=== PATIENT | male | born 1945 | race Two or more races ===

== ENCOUNTER 2024-03-10 14:37 | Emergency (ER) | payer MEDICARE, MEDICAID, SELFPAY ==
[2024-03-10 14:40] VITALS: BMI 29.6
[2024-03-10 15:09] VITALS: BP 119/75; PULSE 84; RESP 18; TEMP 36.9; O2SAT 93
--- NOTE | 2024-03-10 15:19 | XR_ITS ---
Examination: PA lateral chest 2 views TECHNIQUE: Upright PA lateral chest 2 views Exam date and time: March 10, 2024 1530 hours Comparison April 03, 2023 INDICATIONS: Coughing shortness of breath beginning 2 weeks ago. FINDINGS: Opacity in the left lower lung zone obscuring detail left cardiac contour Similar opacity in the right middle lobe Normal heart size Intact osseous structures IMPRESSION: Recommend lateral chest view follow-up to exclude pneumonia in the lingular segment left upper lobe and right middle lobe
--- NOTE | 2024-03-10 15:19 | EKG_ITS ---
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
--- NOTE | 2024-03-10 15:19 | PD.EDADULT ---
ED General RME/HPI General Chief complaint: General Adult/Misc Complain Stated complaint: SENT FOR PNEUMONIA, WAS AT [facility] 03/06 - 03/08/24 Time Seen by Provider: 03/10/24 15:18 Arrival date/time: 03/10/24 14:37 CC: Cough shortness of breath HPI ongoing for the past 4 to 5 days, was seen by recent facility and discharged. The patient was referred by PCP for pneumonia. Patient states he has a wet nonproductive cough denies ever he is smoking. Oxygen saturations per the family this morning were at 77% patient has mild expiratory wheezing with wet nonproductive cough. Patient denies chest pain. Related Data Home Medications ?Medication ?Instructions ?Recorded ?Confirmed donepezil 5 mg tablet 5 mg PO HS 09/12/21 04/03/23 gabapentin 300 mg capsule 1 cap PO TID PRN peripheral 09/12/21 04/03/23 neuropathy hydrocodone 10 mg-acetaminophen 1 tab PO Q12H PRN Severe Pain 09/12/21 04/03/23 325 mg tablet (Scale Score 7-10) metoprolol succinate 50 mg 25 mg PO QDAY 09/12/21 04/03/23 tablet,extended release 24 hr alprazolam 1 mg tablet (Xanax) 1 mg PO HS 04/03/23 04/03/23 lacosamide 50 mg tablet 50 mg PO BID 04/03/23 04/03/23 linaclotide 145 mcg capsule 145 mcg PO QAM 04/03/23 04/03/23 (Linzess) losartan 100 mg tablet 100 mg PO QDAY 04/03/23 04/03/23 venlafaxine 100 mg tablet 100 mg PO QDAY 04/03/23 04/03/23 Previous Rx's ?Medication ?Instructions ?Recorded doxycycline hyclate 100 mg capsule 100 mg PO BID #14 caps 03/10/24 prednisone 20 mg tablet See Taper PO BID 3 days #6 tabs 03/10/24 Allergies Allergy/AdvReac Type Severity Reaction Status Date / Time No Known Allergies Allergy Verified 04/03/23 10:32 Review of Systems Review of Systems Narrative Review of Systems: GEN: No fever, no chills, no weight loss EYES: No discharge, no visual changes, no pain HEENT: No ear pain, no congestion, no sore throat PULM: No shortness of breath, + cough, no congestion CV: No chest pain, no dyspnea on exertion, no palpitations GI: No nausea, no vomiting, no diarrhea, no pain, no constipation : No frequency, no urgency, no dysuria MUSC/SKEL: No joint pain, no back pain SKIN: No rash PSYCH: No hallucinations, no depression HEME/LYMPH: No easy bleeding or bruising tendencies NEURO: No weakness, no headache Past Medical History Past Medical History NEUROLOGIC: Positive Peripheral Neuropathy (Bilateral feet); Negative Neurological Disorders, Cerebrovascular Accident, Transient Ischemic Attacks (TIA), Dementia, Alzheimer's Disease, Parkinson's Disease, Brain Tumor, Meningitis, Seizures, Epilepsy, Multiple Sclerosis, Cerebral Palsy, Amyotrophic Lateral Sclerosis (ALS/Suzette Gehrig's), Guillain-[place] Syndrome, Spina Bifida, Paralysis, Atris's Palsy, Subdural Hematoma, Migraine, Head Trauma, Spinal Cord Injury or Traumatic Brain Injury CARDIAC: Positive Cardiac Disorders (Cardiac cath 09/2020), Cardiac Arrhythmia, Atrial Fibrillation and Hypertension; Negative Myocardial Infarction, Angina, Heart Murmur, Coronary Artery Disease, Atherosclerotic Heart Disease, Peripheral Vascular Disease, Hypercholesterolemia, Aneurysm, Congestive Heart Failure, Congenital Heart Disease, Valvular Heart Disease, Rheumatic Fever, Cardiomyopathy, Edema, Pericarditis, Cellulitis, Deep Vein Thrombosis, Hypotension or Varicose Veins RESPIRATORY: Negative Chronic Obstructive Pulmonary Disease (COPD), Asthma, Bronchitis, Emphysema, Pneumonia, Pulmonary Fibrosis, Cystic Fibrosis, Tuberculosis, Pulmonary Embolism, Pulmonary Edema or Sleep Apnea GASTROINTESTINAL: Positive Pancreatitis (2012), Gall Bladder Disease and Obesity; Negative Gastrointestinal Disorders, Hepatitis, Cirrhosis, Celiac Disease, Gastrointestinal Bleed, Esophageal Varices, Crane's Esophagus, Colitis, Ulcerative Colitis, Diverticulitis, Diverticulosis, Ulcer, Colorectal Cancer, Irritable Bowel, Crohn's Disease, Obstructive Bowel, Hiatal Hernia, Hemorrhoids or Gastroesophageal Reflux Disease GENITOURINARY: Negative Genitourinary Disorders, Renal Disease, Kidney Stones, Polycystic Kidney Disease, Neurogenic Bladder, Inguinal Hernia, Dialysis, Prostate Cancer or Benign Prostatic Hyperplasia REPRODUCTIVE: Negative Genital Herpes, Gonorrhea, Syphilis or Testicular Cancer MUSCULOSKELETAL: Positive Musculoskeletal Disorders (Cervical spine stenosis), Arthritis and Fractures (Left ankle); Negative Muscular Dystrophy, Myasthenia Gravis, Marfan's Syndrome, Bone Cancer, Rheumatoid Arthritis, Osteoporosis, Degenerative Disk Disease, Gout, Scoliosis, Carpal Tunnel Syndrome, Fibromyalgia, Degenerative Joint Disease, Osteomyelitis or Poliovirus ENT: Negative Cataracts, Glaucoma, Blind, Retinal Detachment, Macular Degeneration, Ear Infection, Deafness, Head Trauma or Eye Prosthesis ENDOCRINE: Negative Endocrine Disorders, Diabetes Mellitus Type 1, Diabetes Mellitus Type 2, Hypoglycemia, Lamar's Syndrome, Berrien's Disease, Hyperthyroidism, Hypothyroidism, Parathyroid Disease, Pituitary Disease, Systemic Lupus Erythematosus, Syndrome of Inappropriate Antidiuretic Hormone (SIADH), Adrenal Disease or Graves' Disease HEMATOLOGIC: Negative Blood Disorders, Anemia, Leukemia, Hemophilia, Thalassemia, Sickle Cell Disease or Clotting Problems PSYCHO/SOCIAL: Positive Depression and Anxiety; Negative Psychiatric Problems, Schizophrenia, Recreational Drug Use, Bipolar Disorder, Behavior Problems, Self-Mutilation, Attention Deficit Disorder, Attention Deficit Hyperactivity Disorder, Post Traumatic Stress Disorder or Eating Disorder OTHER HISTORY: Negative Hospitalization, Autoimmune Disease, Down Syndrome, Autism, Developmental Delay, Shingles, Falls, Blood Transfusions, Blood Transfusion Reaction, Anesthesia Reactions, Organ Transplant, Chemotherapy, Radiation Therapy, Hyperbaric Therapy, MRSA, VRSA, Vancomycin-Resistant Enterococci, Human Immunodeficiency Virus (HIV), Chicken Pox, Measles, Mumps, Rubella (Tajik Measles), Pertussis, Clostridium Difficile, Cancer, Colorectal Cancer, Lung Cancer, Prostate Cancer or Testicular Cancer Family History FAMILY HISTORY: Negative Family Psychiatric Problems, Family Respiratory Disorders, Family Cardiac Disorders, Family Gastrointestinal Problems, Family Cancer, Family Surgery or Family Anesthesia Reaction Surgical History SURGICAL: Negative Cardiac Surgery, Open Heart Surgery, Coronary Artery Bypass Graft, Valve Replacement, Vascular Surgery, Coronary Stent, Cardiac Catheterization, Pacemaker, Angiogram, Auto Implanted Cardiovert Defib, Carotid Endarterectomy, Endocrine Surgery, Thyroidectomy, Ear Surgery, Tympanostomy Tube, Eye Surgery, Nose Surgery, Oral Surgery, Tonsillectomy, Adenoidectomy, Cochlear Implant, Corneal Transplant, Throat Surgery, Abdominal Surgery, Tracheostomy, Gastric Bypass Surgery, Gastrostomy, Bowel Surgery, Nephrectomy, Transurethral Resection, Joint Replacement, Amputation, Open Reduction Internal Fixation, Arthroscopy, Neurologic Surgery, Brain Shunt, Vasectomy or Organ Transplant Social History SMOKING STATUS: Never smoker SUBSTANCE USE: does not use ED Exam Narrative Physical exam: [General: Not in any acute distress Head normocephalic HEENT: Within acceptable limits Neck is supple nontender Chest equal chest rise nontender to palpation Respiratory: Right middle to lower lobe and expiratory crackles, audible expiratory wheezing. CV: Rate rhythm is regular no murmurs rubs or clicks Abdomen is soft nontender no masses positive bowel sounds all 4 quadrants Back: No CVA tenderness no spinous process tenderness from cervical spine thoracic and lumbar spine Skin: Intact no petechiae rash induration ulceration or crepitus Extremities: Moving all extremity against resistance cap refill less than 2 seconds neurosensory intact Neuro: Awake alert oriented x3 Glascow coma 15 no focal deficits] Course Quality Measures none Orders Category Date Time Status Bedside COVID-19 Antigen Test NOW Care 03/10/24 15:19 Active Bedside Influenza A&B Antigen Test NOW Care 03/10/24 15:19 Completed EKG (ED ONLY) *Do not use* NOW Care 03/10/24 15:19 Completed EKG (ED Only) Stat Exams 03/10/24 15:19 Draft XR chest 1V Stat Exams 03/10/24 15:19 Completed XR chest 1V Stat Exams 03/10/24 16:44 Completed B-Type Natriuretic Peptide Stat Lab 03/10/24 15:40 Completed CBC Stat Lab 03/10/24 15:40 Completed Comprehensive Metabolic Panel Stat Lab 03/10/24 15:40 Completed Drug Screen,Urine Stat Lab 03/10/24 17:13 Completed LDH (Lactate Dehydrogenase) Stat Lab 03/10/24 15:40 Completed Magnesium Stat Lab 03/10/24 15:40 Completed Partial Thromboplastin Time Stat Lab 03/10/24 15:40 Completed Prothrombin Time with INR Stat Lab 03/10/24 15:40 Completed Troponin I Stat Lab 03/10/24 15:40 Completed Urinalysis Stat Lab 03/10/24 17:13 Completed 1,000 mg IM w/Lido* 1% Med 03/10/24 18:34 Ordered cefTRIAXone [Rocephin] 1,000 mg Lidocaine 1% 20 ml [Xylocaine 1% 20 ML] 2.1 ml IM X1 Albuterol/Ipratr Rt Rhoda [Duoneb Rt Rhoda] Med 03/10/24 15:22 Discontinued 3 ml INH X1 ONE Vital Signs Vital signs: Vital Signs Temperature 98.5 F 03/10/24 15:09 Pulse Rate 84 03/10/24 15:09 Respiratory Rate 18 03/10/24 15:09 Blood Pressure 119/75 03/10/24 15:09 Pulse Oximetry (%) 93 L 03/10/24 15:09 Oxygen Delivery Method Room Air 03/10/24 15:09 [facility] Patient data External records reviewed:: [facility] previous records Clinical information provided by:: patient Social determinants that could affect healthcare access:: none Patient has the following chronic illnesses:: Hypertension How is presenting disease/condition affected by chronic disease/condition?: uneffected by Evaluation data The following diagnostics were reviewed and interpreted by me:: lab results, radiology exam(s) and EKG tracing(s) Lab and/or radiology exams considered but not ordered:: CBC shows no acute leukocytosis anemia thrombocytopenia CMP shows mildly elevated glucose level no other electrolyte imbalances renal impairment transaminitis or T. bili elevation. Coags within acceptable limits 2 view chest shows no pneumonia. Troponin is negative BNP is negative Interpretation Summary: Although the patient has no leukocytosis he does have a wet nonproductive cough, borderline oxygen saturations at home but are reasonable except saturations for us here in the ER. This time the patient with discharge after injection of Rocephin to be given doxycycline and steroids and if there is a worsening of symptoms he is to return the emergency room immediately for further evaluation otherwise return in 48 hours for recheck. Medications Medications considered but not ordered:: None Medication administrations:: Medication Administration History Discontinued Medications Albuterol/Ipratropium (Albuterol/Ipratropium (Duoneb) Rt Rhoda 3 Ml Nebu) 3 ml INH X1 ONE Stop: 03/10/24 15:23 Last Admin: 03/10/24 16:09 Dose: 3 ml Documented By: KENISHA None Consultations Consultation(s) initiated? (list below): No Diagnosis Differential Diagnosis ED Complaint MDM: Pneumonia CHF COPD Most likely diagnosis given after review of the tests above:: Pneumonia Admission Indicated Admission indicated?: not indicated Explain why admission is indicated or not indicated:: Stable for outpatient follow-up Admission Request Was there a request for admission?: No Disposition Plan Disposition Plan: Discharge Discharge Attestation Discharge Attestation: The patient and all family members were given an opportunity to ask questions and understood the discharge instructions. Discharge instructions specifically effects, indications for sooner follow up or return to the emergency department, and the expected course of current diagnosis. Patient condition: Stable Medical Decision Making Differential Diagnosis Differential Diagnosis: Pneumonia CHF COPD Lab Data 03/10/24 15:40 03/10/24 15:40 Labs: Lab Results 03/10/24 03/10/24 Range/Units 15:40 17:13 WBC 7.8 (3.8-10.6) Thou/mm3 RBC 5.28 (4.50-5.90) Miln/mm3 Hgb 14.4 (13.5-16.0) g/dL Hct 44.5 (41.0-53.0) % MCV 84 (80-100) fL MCH 27.3 (25.0-35.0) pg MCHC 32.4 (31.0-37.0) g/dl RDW Std Deviation 43.7 (35.1-43.9) fL Plt Count 121 L (140-440) Thou/mm3 Neut % (Auto) 74 (37-80) % Lymph % (Auto) 13 (10-50) % [place] % (Auto) 10 (0-12) % Eos % (Auto) 2 (0-10) % Baso % (Auto) 1 (0-2.5) % Neut # (Auto) 5.8 (1.8-7.7) Thou/mm3 Lymph # (Auto) 1.0 (1.0-4.8) Thou/mm3 [place] # (Auto) 0.8 (0.0-0.8) Thou/mm3 Eos # (Auto) 0.2 (0.0-0.5) Thou/mm3 Baso # (Auto) 0.0 (0.0-0.2) Thou/mm3 Immature Gran # (Auto) 0.03 H (0.00-0.00) Thou/mm3 Absolute Nucleated RBC 0.00 (0.00-0.00) Thou/mm3 Immature Gran % 0 (0-0) % Nucleated RBC % 0 (0) /100 WBC PT 13.2 H (9.0-12.2) Seconds INR 1.2 (0.9-1.3) APTT 27.8 (22.0-36.0) Seconds Sodium 137 (136-145) mMol/L Potassium 4.0 (3.4-5.1) mMol/L Chloride 101 (98-107) mMol/L Carbon Dioxide 28.5 (20.0-31.0) mMol/L Anion Gap 8 (7-16) BUN 15 (9-23) mg/dL Creatinine 1.1 (0.6-1.3) mg/dL Estim Creat Clear Calc 60.8 L (>60) mL/min eGFR > 60 (60 - ) See Note BUN/Creatinine Ratio 14 (12-20) Ratio Glucose 126 H (74-106) mg/dL Calculated Osmolality 276 (275-295) Calcium 9.3 (8.3-10.6) mg/dL Corrected Calcium 9.3 (8.5-10.1) mg/dL Magnesium 1.6 (1.6-2.6) mg/dL Total Bilirubin 0.5 (0.3-1.2) mg/dL AST 32 (0-34) U/L ALT 17 (10-49) U/L Alkaline Phosphatase 88 (46-116) U/L Lactate Dehydrogenase 238 (120-246) U/L Troponin I < 0.020 (0.0-0.045) ng/mL B-Natriuretic Peptide 55 (0-100) pg/mL Total Protein 7.8 (5.7-8.2) gm/dL Albumin 4.7 (3.4-4.8) gm/dL Globulin 3.1 (2.3-3.5) gm/dL Albumin/Globulin Ratio 1.5 (1.2-2.2) Ur Collection Type Clean Catch Urine Color Lt-Yellow (Lt Yel-Yel) Urine Clarity Clear (Clear/Hazy) Urine pH 6.0 (5.0-7.0) Ur Specific [place] 1.009 (1.001-1.035) Urine Protein Negative (Neg - Trace) Urine Glucose (UA) Negative (Negative) Urine Ketones Negative (Negative) Urine Blood Negative (Negative) Urine Nitrite Negative (Negative) Urine Bilirubin Negative (Negative) Urine Urobilinogen (Auto) Negative (0.0-1.0) mg/dL Ur Leukocyte Esterase Negative (Negative) Urine RBC < 1 (0-3) /hpf Urine WBC < 1 (0-5) /hpf Ur Squamous Epith Cells 0 (0-5) /hpf Urine Bacteria None (None) Urine Opiates Screen Negative (Negative) Urine Fentanyl Screen Negative (Negative) Ur Barbiturates Screen Negative (Negative) U Amphetamin/Meth Scrn Negative (Negative) U Benzodiazepines Scrn Positive A (Negative) U Cocaine Metab Screen Negative (Negative) U Marijuana (THC) Screen Negative (Negative) Discharge Plan Plan Patient Disposition: HOME (Self Care) Patient condition on transfer: Stable Prescriptions/Referrals Prescriptions/Med Rec: New doxycycline hyclate 100 mg capsule 100 mg PO BID Qty: 14 0RF prednisone 20 mg tablet See Taper PO BID 3 Days Qty: 6 0RF Taper: Prednisone Taper 20 mg DAILY for 2 Days and 0 Hour 10 mg DAILY for 2 Days and 0 Hour 5 mg DAILY for 7 Days and 0 Hour No Action donepezil 5 mg tablet 5 mg PO HS Patient Comments: TAKE 1 TABLET BY ORAL ROUTE EVERY DAY IN THE EVENING FOR SHORT TERM MEMORY LOSS. hydrocodone-acetaminophen 10-325 mg tablet 1 tab PO Q12H PRN (Reason: Severe Pain (Scale Score 7-10)) Patient Comments: TAKE 1 TABLET BY MOUTH EVERY 8 HOURS NEEDED FOR SEVERE PAIN metoprolol succinate 50 mg Tablet Extended Release 24 Hr 25 mg PO QDAY gabapentin 300 mg capsule 1 cap PO TID PRN (Reason: peripheral neuropathy) Patient Comments: TAKE 1 CAPSULE BY ORAL ROUTE 3 TIMES EVERY DAY NEEDED FOR NEUROPATHY. alprazolam [Xanax] 1 mg Tablet 1 mg PO HS venlafaxine 100 mg Tablet 100 mg PO QDAY Rx Instructions: Every evening Linzess 145 mcg Capsule 145 mcg PO QAM losartan 100 mg Tablet 100 mg PO QDAY lacosamide 50 mg Tablet 50 mg PO BID Referrals: Yola Vance [Primary Care Provider] - In 1 week Problem List Clinical Impression: Pneumonia Patient/Caregiver Discharge Instructions Education Materials: ED Pneumonia (Adult) Additional Instructions: Take the medications as prescribed return in 48 hours for recheck unless there is a worsening of symptoms prior to that in spite of the medications then return immediately for reevaluation. 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
[2024-03-10 15:55] LABS: Basophils % (Auto) 1 % (0-2.5); Eosinophils # (Auto) 0.2 Thou/mm3 (0.0-0.5); Eosinophils % (Auto) 2 % (0-10); Hematocrit 44.5 % (41.0-53.0); Hemoglobin 14.4 g/dL (13.5-16.0); Immature Granulocytes % (Auto) 0 % (0-0); Immature Granulocytes Auto 0.03 Thou/mm3 (0.00-0.00); Lymphocytes % (Auto) 13 % (10-50); Mean Corpuscular HGB Conc 32.4 g/dl (31.0-37.0); Mean Corpuscular Hemoglobin 27.3 pg (25.0-35.0); Mean Corpuscular Volume 84 fL (80-100); Monocytes # (Auto) 0.8 Thou/mm3 (0.0-0.8); Monocytes % (Auto) 10 % (0-12); Neutrophils # (Auto) 5.8 Thou/mm3 (1.8-7.7); Neutrophils % (Auto) 74 % (37-80); Nucleated Red Blood Cell % 0 /100 WBC (0); Platelet Count 121 Thou/mm3 (140-440); RDW Standard Deviation 43.7 fL (35.1-43.9); Red Blood Count 5.28 Miln/mm3 (4.50-5.90); White Blood Count 7.8 Thou/mm3 (3.8-10.6)
[2024-03-10] MEDS: ALBUTEROL/IPRATROPIUM (Duoneb) RT SOL 3 ML NEBU INH (16:09)
[2024-03-10 16:12] VITALS: PULSE 95; RESP 19; O2SAT 99
[2024-03-10 16:16] LABS: B-Type Natriuretic Peptide 55 pg/mL (0-100)
[2024-03-10 16:18] LABS: INR 1.2 (0.9-1.3); Partial Thromboplastin Time 27.8 Seconds (22.0-36.0); Prothrombin Time 13.2 Seconds (9.0-12.2)
[2024-03-10 16:26] LABS: Alanine Aminotransferase 17 U/L (10-49); Albumin, Serum 4.7 gm/dL (3.4-4.8); Albumin/Globulin Ratio 1.5 (1.2-2.2); Alkaline Phosphatase 88 U/L (46-116); Anion Gap 8 (7-16); Aspartate Amino Transferase 32 U/L (0-34); BUN/Creatinine Ratio 14 Ratio (12-20); Bilirubin,Total 0.5 mg/dL (0.3-1.2); Blood Urea Nitrogen 15 mg/dL (9-23); Calcium 9.3 mg/dL (8.3-10.6); Calcium (Corrected) 9.3 mg/dL (8.5-10.1); Carbon Dioxide 28.5 mMol/L (20.0-31.0); Chloride 101 mMol/L (98-107); Creatinine (Component) 1.1 mg/dL (0.6-1.3); Estimated Creatinine Clearance 60.8 mL/min (>60); Globulin 3.1 gm/dL (2.3-3.5); Glucose 126 mg/dL (74-106); LDH (Lactate Dehydrogenase) 238 U/L (120-246); Magnesium 1.6 mg/dL (1.6-2.6); Osmolality,Calculated 276 (275-295); Sodium 137 mMol/L (136-145); Total Protein 7.8 gm/dL (5.7-8.2); Troponin I < 0.020 ng/mL (0.0-0.045); eGFR > 60 See Note
--- NOTE | 2024-03-10 16:44 | XR_ITS ---
Examination: Lateral chest single view Technique: Lateral chest single view Exam date and time: March 10, 2024 1711 hrs. Comparison upright PA chest March 10, 2024 1530 hrs. Indications: Coughing beginning 2 weeks ago. Findings: Pneumonia in the posterior basal segment left lower lobe is confirmed on the lateral view Impression: Significant pneumonia posterior basal segment left lower lobe
[2024-03-10 17:19] LABS: Collection Type, Urine Clean Catch; Squamous Epithelial Cell,Urine 0 /hpf (0-5)
[2024-03-10 17:28] LABS: Bilirubin,Urine Negative (Negative); Blood,Urine Negative (Negative); Clarity,Urine Clear (Clear/Hazy); Color,Urine Lt-Yellow (Lt Yel-Yel); Glucose, Urine Negative (Negative); Ketones,Urine Negative (Negative); Leukocyte Esterase,Urine Negative (Negative); Nitrite,Urine Negative (Negative); Protein,Urine Negative (Neg - Trace); RBC,Urine < 1 /hpf (0-3); Specific Gravity,Urine 1.009 (1.001-1.035); Urobilinogen,Urine Negative mg/dL (0.0-1.0); WBC,Urine < 1 /hpf (0-5)
[2024-03-10 17:38] LABS: Amphetamine/Methamp Scrn,U Negative (Negative); Barbiturate Screen,Urine Negative (Negative); Benzodiazepines Screen,Urine Positive (Negative); Benzoylecgonine Screen, Ur Negative (Negative); Fentanyl Screen,Urine Negative (Negative); Opiate Screen,Urine Negative (Negative); THC Screen,Urine Negative (Negative)
[2024-03-10] MEDS: cefTRIAXone 1,000 MG, LIDOCAINE 1% 20 ML 2.1 ML IM (18:42)
== END 2024-03-10 18:53 | disposition home or self-care (01) ==
PROVIDERS: Registered Nurse General Practice; Emergency Provider Emergency Medicine; PCP Internal Medicine
DX: J18.9 Pneumonia, unspecified organism (principal); I44.4 Left anterior fascicular block; I10 Essential (primary) hypertension; I48.91 Unspecified atrial fibrillation
CPT/HCPCS: 36415; 71045; 80053; 80307; 81001; 83615; 83735; 83880; 84484; 85025; 85610; 85730; 87400; 87811; 93005; 94640; 96372; 99283; A9270; J0696; J3490

== ENCOUNTER 2024-03-12 11:00 | Emergency (ER) | payer MEDICARE, MEDICAID, SELFPAY ==
--- NOTE | 2024-03-12 11:27 | XR_ITS ---
Examination: PA lateral chest 2 views TECHNIQUE: Upright PA lateral chest 2 views Exam date and time: March 12, 1999 2512 noon INDICATIONS: SOB chest pain beginning 3 weeks ago. FINDINGS: Opacity on the lateral view posteriorly obscuring detail posterior portion left hemidiaphragm Normal heart size No pulmonary edema IMPRESSION: Early pneumonia posterior basal segment left lower lobe
[2024-03-12 12:01] VITALS: BP 130/70; PULSE 74; RESP 16; TEMP 36.9; O2SAT 94; BMI 29.5
--- NOTE | 2024-03-12 12:18 | PD.EDRECHK ---
ED Recheck Abnl Lab Rx-RME/HPI General Chief Complaint: Recheck/Abnormal Lab/Rx Stated Complaint: TOLD BY ANATOLY TO RETRUN FOR [facility]EE[facility] Time Seen by Provider: 03/12/24 11:56 Source: patient Arrival date/time: 03/12/24 11:00 78-year-old male with a history of hypertension, presents to the emergency room with a chief complaint of needing a repeat x-ray after being diagnosed with pneumonia 2 days ago. Patient states his symptoms have improved since 2 days ago. Mode of arrival: ambulatory Limitations: no limitations Related Data Home Medications ?Medication ?Instructions ?Recorded ?Confirmed donepezil 5 mg tablet 5 mg PO HS 09/12/21 04/03/23 gabapentin 300 mg capsule 1 cap PO TID PRN peripheral 09/12/21 04/03/23 neuropathy hydrocodone 10 mg-acetaminophen 1 tab PO Q12H PRN Severe Pain 09/12/21 04/03/23 325 mg tablet (Scale Score 7-10) metoprolol succinate 50 mg 25 mg PO QDAY 09/12/21 04/03/23 tablet,extended release 24 hr alprazolam 1 mg tablet (Xanax) 1 mg PO HS 04/03/23 04/03/23 lacosamide 50 mg tablet 50 mg PO BID 04/03/23 04/03/23 linaclotide 145 mcg capsule 145 mcg PO QAM 04/03/23 04/03/23 (Linzess) losartan 100 mg tablet 100 mg PO QDAY 04/03/23 04/03/23 venlafaxine 100 mg tablet 100 mg PO QDAY 04/03/23 04/03/23 Previous Rx's ?Medication ?Instructions ?Recorded doxycycline hyclate 100 mg capsule 100 mg PO BID #14 caps 03/10/24 prednisone 20 mg tablet See Taper PO BID 3 days #6 tabs 03/10/24 albuterol sulfate 90 mcg/actuation 2 inh inhalation Q6H PRN shortness 03/12/24 breath activated powder inhaler of breath or wheezing #1 ea Allergies Allergy/AdvReac Type Severity Reaction Status Date / Time No Known Allergies Allergy Verified 04/03/23 10:32 Review of Systems Review of Systems Systems Reviewed: All systems reviewed, normal except as documented Constitutional Constitutional: Reports system reviewed and no additional complaints, except as documented, Denies fatigue, Denies fever(s), Denies headache(s) and Denies weakness Eyes Eyes: Reports system reviewed and no additional complaints, except as documented, Denies blurry vision and Denies change in vision ENT Ears, Nose, Mouth, and Throat: Reports system reviewed and no additional complaints, except as documented, Denies otalgia, Denies headache(s), Denies nasal congestion, Denies throat swelling and Denies vertigo Cardiovascular Cardiovascular: Reports system reviewed and no additional complaints, except as documented, Denies chest pain, Reports dyspnea and Reports dyspnea on exertion Respiratory Respiratory: Reports system reviewed and no additional complaints, except as documented, Reports chest congestion, Reports cough, Reports dyspnea, Reports dyspnea on exertion, Reports excessive phlegm production and Reports wheezing Gastrointestinal Gastrointestinal: Reports system reviewed and no additional complaints, except as documented, Denies abdominal pain, Denies cramping, Denies nausea and Denies vomiting Genitourinary Genitourinary: Reports system reviewed and no additional complaints, except as documented, Denies dysuria and Denies hematuria Musculoskeletal Musculoskeletal: Reports system reviewed and no additional complaints, except as documented and Denies back pain Integumentary/Breasts Skin/Breast: Reports system reviewed and no additional complaints, except as documented and Denies wounds Neurologic Neurologic: Reports system reviewed and no additional complaints, except as documented, Denies confusion, Denies headache(s), Denies lack of coordination, Denies vertigo and Denies weakness Psychiatric Psychiatric: Reports system reviewed and no additional complaints, except as documented, Denies anxiety, Denies confusion, Denies depression, Denies paranoia, Denies suicidal ideation and Denies tactile hallucinations Endocrine Endocrine: Reports system reviewed and no additional complaints, except as documented and Denies fatigue Hematologic/Lymphatic Hematologic/Lymphatic: Reports system reviewed and no additional complaints, except as documented and Denies lymphadenopathy Allergic/Immunologic Allergic/Immunologic: Reports system reviewed and no additional complaints, except as documented, Denies throat swelling, Denies urticaria and Reports wheezing Past Medical History Past Medical History NEUROLOGIC: Positive Peripheral Neuropathy (Bilateral feet); Negative Neurological Disorders, Cerebrovascular Accident, Transient Ischemic Attacks (TIA), Dementia, Alzheimer's Disease, Parkinson's Disease, Brain Tumor, Meningitis, Seizures, Epilepsy, Multiple Sclerosis, Cerebral Palsy, Amyotrophic Lateral Sclerosis (ALS/Suzette Gehrig's), Guillain-[place] Syndrome, Spina Bifida, Paralysis, Artis's Palsy, Subdural Hematoma, Migraine, Head Trauma, Spinal Cord Injury or Traumatic Brain Injury CARDIAC: Positive Cardiac Disorders (Cardiac cath 09/2020), Cardiac Arrhythmia, Atrial Fibrillation and Hypertension; Negative Myocardial Infarction, Angina, Heart Murmur, Coronary Artery Disease, Atherosclerotic Heart Disease, Peripheral Vascular Disease, Hypercholesterolemia, Aneurysm, Congestive Heart Failure, Congenital Heart Disease, Valvular Heart Disease, Rheumatic Fever, Cardiomyopathy, Edema, Pericarditis, Cellulitis, Deep Vein Thrombosis, Hypotension or Varicose Veins RESPIRATORY: Negative Chronic Obstructive Pulmonary Disease (COPD), Asthma, Bronchitis, Emphysema, Pneumonia, Pulmonary Fibrosis, Cystic Fibrosis, Tuberculosis, Pulmonary Embolism, Pulmonary Edema or Sleep Apnea GASTROINTESTINAL: Positive Pancreatitis (2012), Gall Bladder Disease and Obesity; Negative Gastrointestinal Disorders, Hepatitis, Cirrhosis, Celiac Disease, Gastrointestinal Bleed, Esophageal Varices, Crane's Esophagus, Colitis, Ulcerative Colitis, Diverticulitis, Diverticulosis, Ulcer, Colorectal Cancer, Irritable Bowel, Crohn's Disease, Obstructive Bowel, Hiatal Hernia, Hemorrhoids or Gastroesophageal Reflux Disease GENITOURINARY: Negative Genitourinary Disorders, Renal Disease, Kidney Stones, Polycystic Kidney Disease, Neurogenic Bladder, Inguinal Hernia, Dialysis, Prostate Cancer or Benign Prostatic Hyperplasia REPRODUCTIVE: Negative Genital Herpes, Gonorrhea, Syphilis or Testicular Cancer MUSCULOSKELETAL: Positive Musculoskeletal Disorders (Cervical spine stenosis), Arthritis and Fractures (Left ankle); Negative Muscular Dystrophy, Myasthenia Gravis, Marfan's Syndrome, Bone Cancer, Rheumatoid Arthritis, Osteoporosis, Degenerative Disk Disease, Gout, Scoliosis, Carpal Tunnel Syndrome, Fibromyalgia, Degenerative Joint Disease, Osteomyelitis or Poliovirus ENT: Negative Cataracts, Glaucoma, Blind, Retinal Detachment, Macular Degeneration, Ear Infection, Deafness, Head Trauma or Eye Prosthesis ENDOCRINE: Negative Endocrine Disorders, Diabetes Mellitus Type 1, Diabetes Mellitus Type 2, Hypoglycemia, [place]'s Syndrome, [place]'s Disease, Hyperthyroidism, Hypothyroidism, Parathyroid Disease, Pituitary Disease, Systemic Lupus Erythematosus, Syndrome of Inappropriate Antidiuretic Hormone (SIADH), Adrenal Disease or Graves' Disease HEMATOLOGIC: Negative Blood Disorders, Anemia, Leukemia, Hemophilia, Thalassemia, Sickle Cell Disease or Clotting Problems PSYCHO/SOCIAL: Positive Depression and Anxiety; Negative Psychiatric Problems, Schizophrenia, Recreational Drug Use, Bipolar Disorder, Behavior Problems, Self-Mutilation, Attention Deficit Disorder, Attention Deficit Hyperactivity Disorder, Post Traumatic Stress Disorder or Eating Disorder OTHER HISTORY: Negative Hospitalization, Autoimmune Disease, Down Syndrome, Autism, Developmental Delay, Shingles, Falls, Blood Transfusions, Blood Transfusion Reaction, Anesthesia Reactions, Organ Transplant, Chemotherapy, Radiation Therapy, Hyperbaric Therapy, MRSA, VRSA, Vancomycin-Resistant Enterococci, Human Immunodeficiency Virus (HIV), Chicken Pox, Measles, Mumps, Rubella ([place] Measles), Pertussis, Clostridium Difficile, Cancer, Colorectal Cancer, Lung Cancer, Prostate Cancer or Testicular Cancer Family History FAMILY HISTORY: Negative Family Psychiatric Problems, Family Respiratory Disorders, Family Cardiac Disorders, Family Gastrointestinal Problems, Family Cancer, Family Surgery or Family Anesthesia Reaction Surgical History SURGICAL: Negative Cardiac Surgery, Open Heart Surgery, Coronary Artery Bypass Graft, Valve Replacement, Vascular Surgery, Coronary Stent, Cardiac Catheterization, Pacemaker, Angiogram, Auto Implanted Cardiovert Defib, Carotid Endarterectomy, Endocrine Surgery, Thyroidectomy, Ear Surgery, Tympanostomy Tube, Eye Surgery, Nose Surgery, Oral Surgery, Tonsillectomy, Adenoidectomy, Cochlear Implant, Corneal Transplant, Throat Surgery, Abdominal Surgery, Tracheostomy, Gastric Bypass Surgery, Gastrostomy, Bowel Surgery, Nephrectomy, Transurethral Resection, Joint Replacement, Amputation, Open Reduction Internal Fixation, Arthroscopy, Neurologic Surgery, Brain Shunt, Vasectomy or Organ Transplant Social History SMOKING STATUS: Never smoker SUBSTANCE USE: does not use ED Exam General Limitations: Present no limitations General appearance: Present alert and in no apparent distress Head Head exam: Present atraumatic Eye Eye exam: Present normal appearance, PERRL and EOMI ENT ENT exam: Present normal exam, normal oropharynx and mucous membranes moist Neck Neck exam: Present normal inspection, full ROM and trachea midline Chest Chest inspection: Present normal inspection and symmetric chest wall rise Respiratory Respiratory exam: Present normal lung sounds bilaterally and wheezes; Absent respiratory distress, stridor, accessory muscle use or prolonged expiratory phase Cardiovascular Cardiovascular exam: Present regular rate, normal rhythm and normal heart sounds Abdominal Exam Abdominal exam: Present soft and normal bowel sounds Extremities Exam Extremities exam: Present normal inspection and full ROM Back Exam Back exam: Present normal inspection and full ROM Neurological Exam Neurological exam: Present alert, oriented X3 and CN II-XII intact Psychiatric Psychiatric exam: Present normal affect and normal mood Skin Skin exam: Present warm, dry, intact and normal color Course Quality Measures none Orders Category Date Time Status XR chest 2V Stat Exams 03/12/24 11:27 Completed CBC Stat Lab 03/12/24 12:00 Completed CMP [Comprehensive Metabolic Panel] Stat Lab 03/12/24 12:00 Completed Vital Signs Vital signs: Vital Signs Temperature 98.5 F 03/12/24 12:01 Pulse Rate 74 03/12/24 12:01 Respiratory Rate 16 03/12/24 12:01 Blood Pressure 130/70 03/12/24 12:01 Pulse Oximetry (%) 94 L 03/12/24 12:01 Oxygen Delivery Method Room Air 03/12/24 12:01 O2 saturation 94% Recheck / Abnormal Lab / Rx MDM Narrative MDM Narrative:: 78-year-old male with a history of hypertension, presents to the emergency room with a chief complaint of needing a repeat x-ray after being diagnosed with pneumonia 2 days ago. Patient states his symptoms have improved since 2 days ago. Clinically the patient appears nontoxic and in no apparent distress. Physical examination showed bilateral wheezing to the upper and lower lobes. The patient is being seen today for reevaluation. Patient is diagnosed with pneumonia already and is taking antibiotics. Patient was told to come for recheck to make sure his antibiotics are working and he is not getting worse. Per patient he states his symptoms are not getting worse and states he is feeling a little bit better. Patient was educated to keep taking his antibiotics and return to the emergency room for any evidence of worsening signs or symptoms Patient data External records reviewed:: [facility] previous records Clinical information provided by:: patient Social determinants that could affect healthcare access:: none Patient has the following chronic illnesses:: Hyperlipidemia, hypertension How is presenting disease/condition affected by chronic disease/condition?: uneffected by Evaluation data The following diagnostics were reviewed and interpreted by me:: lab results and radiology exam(s) Lab and/or radiology exams considered but not ordered:: Labs and radiology exams considered and ordered Interpretation Summary: Chest [id number] Medications / Prescriptions Medications or Prescriptions considered but not ordered:: Rx already given Medication administrations:: Rx already given Consultations Consultation(s) initiated? (list below): No Diagnosis Recheck Differential Diagnosis: other (Community-acquired pneumonia/upper respiratory infection/influenza) Most likely diagnosis given after review of the tests above:: Community-acquired pneumonia Admission Indicated Admission indicated?: not indicated Admission Request Was there a request for admission?: No Disposition Plan Disposition Plan: Discharge Discharge Attestation Discharge Attestation: The patient and all family members were given an opportunity to ask questions and understood the discharge instructions. Discharge instructions specifically effects, indications for sooner follow up or return to the emergency department, and the expected course of current diagnosis. Patient condition: Stable Discharge Plan Plan Patient Disposition: HOME (Self Care) Disposition Comment: Stable Prescriptions/Referrals Prescriptions/Med Rec: New albuterol sulfate 90 mcg/actuation aerosol powdr breath activated 2 inh inhalation Q6H PRN (Reason: shortness of breath or wheezing) Qty: 1 0RF No Action donepezil 5 mg tablet 5 mg PO HS Patient Comments: TAKE 1 TABLET BY ORAL ROUTE EVERY DAY IN THE EVENING FOR SHORT TERM MEMORY LOSS. hydrocodone-acetaminophen 10-325 mg tablet 1 tab PO Q12H PRN (Reason: Severe Pain (Scale Score 7-10)) Patient Comments: TAKE 1 TABLET BY MOUTH EVERY 8 HOURS NEEDED FOR SEVERE PAIN metoprolol succinate 50 mg Tablet Extended Release 24 Hr 25 mg PO QDAY gabapentin 300 mg capsule 1 cap PO TID PRN (Reason: peripheral neuropathy) Patient Comments: TAKE 1 CAPSULE BY ORAL ROUTE 3 TIMES EVERY DAY NEEDED FOR NEUROPATHY. alprazolam [Xanax] 1 mg Tablet 1 mg PO HS venlafaxine 100 mg Tablet 100 mg PO QDAY Rx Instructions: Every evening Linzess 145 mcg Capsule 145 mcg PO QAM losartan 100 mg Tablet 100 mg PO QDAY lacosamide 50 mg Tablet 50 mg PO BID doxycycline hyclate 100 mg capsule 100 mg PO BID Qty: 14 0RF prednisone 20 mg tablet See Taper PO BID 3 Days Qty: 6 0RF Taper: Prednisone Taper 20 mg DAILY for 2 Days and 0 Hour 10 mg DAILY for 2 Days and 0 Hour 5 mg DAILY for 7 Days and 0 Hour Referrals: Yola Vance MD [Primary Care Provider] - In 1 week Problem List Clinical Impression: Community acquired pneumonia Patient/Caregiver Discharge Instructions Education Materials: ED Pneumonia (Adult) Additional Instructions: Please follow-up with your primary care provider in the next 24 to 48 hours. X-ray was completed and your pneumonia is still there but has not gotten worse. Your blood work shows a mild infection but you are on the correct antibiotics to fix this problem For any evidence of worsening signs or symptoms please return to the emergency room immediately Print Language: Uzbek Stand Alone Forms: [employer] Award Info., Patient Portal Info Letter PA/NICO Supervising Physician KURTIS/NICO Supervising Physician: Dr. Thomas
[2024-03-12 12:23] LABS: Basophils % (Auto) 0 % (0-2.5); Eosinophils % (Auto) 0 % (0-10); Hematocrit 43.5 % (41.0-53.0); Hemoglobin 13.9 g/dL (13.5-16.0); Immature Granulocytes % (Auto) 1 % (0-0); Immature Granulocytes Auto 0.13 Thou/mm3 (0.00-0.00); Lymphocytes # (Auto) 0.6 Thou/mm3 (1.0-4.8); Lymphocytes % (Auto) 5 % (10-50); Mean Corpuscular Hemoglobin 27.4 pg (25.0-35.0); Mean Corpuscular Volume 86 fL (80-100); Monocytes # (Auto) 0.3 Thou/mm3 (0.0-0.8); Monocytes % (Auto) 3 % (0-12); Neutrophils # (Auto) 10.8 Thou/mm3 (1.8-7.7); Neutrophils % (Auto) 91 % (37-80); Nucleated Red Blood Cell % 0 /100 WBC (0); Platelet Count 128 Thou/mm3 (140-440); RDW Standard Deviation 44.6 fL (35.1-43.9); Red Blood Count 5.07 Miln/mm3 (4.50-5.90); White Blood Count 11.9 Thou/mm3 (3.8-10.6)
[2024-03-12 12:45] LABS: Alanine Aminotransferase 12 U/L (10-49); Albumin, Serum 4.7 gm/dL (3.4-4.8); Albumin/Globulin Ratio 1.7 (1.2-2.2); Alkaline Phosphatase 75 U/L (46-116); Anion Gap 7 (7-16); Aspartate Amino Transferase 20 U/L (0-34); BUN/Creatinine Ratio 18 Ratio (12-20); Bilirubin,Total 0.5 mg/dL (0.3-1.2); Blood Urea Nitrogen 18 mg/dL (9-23); Calcium 9.3 mg/dL (8.3-10.6); Calcium (Corrected) 9.3 mg/dL (8.5-10.1); Carbon Dioxide 28.6 mMol/L (20.0-31.0); Chloride 103 mMol/L (98-107); Estimated Creatinine Clearance 66.7 mL/min (>60); Globulin 2.8 gm/dL (2.3-3.5); Glucose 172 mg/dL (74-106); Osmolality,Calculated 283 (275-295); Potassium 4.6 mMol/L (3.4-5.1); Sodium 139 mMol/L (136-145); Total Protein 7.5 gm/dL (5.7-8.2); eGFR > 60 See Note
== END 2024-03-12 13:51 | disposition home or self-care (01) ==
PROVIDERS: Nurse Practitioner Family; Emergency Provider Emergency Medicine; PCP Internal Medicine
DX: J18.9 Pneumonia, unspecified organism (principal)
CPT/HCPCS: 36415; 71046; 80053; 85025; 99283

== ENCOUNTER → 2025-02-02 | Outpatient (CLI) | payer MEDICARE, MEDICAID, SELFPAY ==
--- NOTE | 2025-02-02 13:33 | XR_ITS ---
Examination: Lumbar spine, 5 views Technique: Lumbar spine AP, lateral, coned lateral lower lumbar spine, bilateral obliques 5 views Exam date and time: February 02, 2025, 1344 hours INDICATIONS: Low back pain months. FINDINGS: Lumbar levoscoliosis 10 degrees Advanced diffuse facet arthropathy Prominent lumbar spondylosis No lumbar fracture Mild to advanced diffuse lumbar degenerative disc disease, especially L5-S1 IMPRESSION: Advanced degenerative disc disease L5-S1 with spinal stenosis
--- NOTE | 2025-02-02 13:33 | XR_ITS ---
EXAMINATION: Cervical spine 3 views TECHNIQUE: AP lateral coned AP odontoid cervical spine 3 views Date and time: February 02, 2025, 1344 hours, comparison June 20, 2019 INDICATIONS: Neck pain months. FINDINGS: Posterior transpedicular stabilization and fusion C3-T1 with laminectomies Satisfactory alignment Intact odontoid No cervical fracture IMPRESSION: Stable extensive cervical fusion and laminectomies Satisfactory alignment
== END | disposition home or self-care (01) ==
LOC: CDIM 13:28
PROVIDERS: PCP Nurse Practitioner Family; Referring Provider Nurse Practitioner Family; Visit Provider Nurse Practitioner Family
DX: M43.22 Fusion of spine, cervical region (principal); Z98.890 Other specified postprocedural states; M51.370 Other intervertebral disc degeneration, lumbosacral region with discogenic back pain only; M48.07 Spinal stenosis, lumbosacral region
CPT/HCPCS: 70360; 72110